=== PATIENT | female | born 1985 | race African-American/Black ===

== ENCOUNTER 2016-06-04 00:23 | Emergency (ER) | payer OTHER ==
[~2016-06-04] VITALS: Ht 152.4 cm; Wt 111.1 kg
[~2016-06-04 00:23] MED LIST: IBUPROFEN800 MG PO
--- NOTE | 2016-06-04 00:38 | ED MVC/FALL/TRAUMA COMPLAINT ---
History of Present Illness General Chief Complaint: Fall Stated Complaint: LKNEE AND LBP Source: patient Exam Limitations: no limitations Vital Signs & Intake/Output Vital Signs & Intake/Output ED Intake and Output 06/05 0000 06/04 1200 Intake Total 0 Output Total Balance 0 Intake, Oral 0 Patient 245 lb Weight Allergies Coded Allergies: NO KNOWN ALLERGIES (07/09/13) Reconcile Medications Ibuprofen 800 MG TABLET 800 MG PO Q6P PRN PAIN SCALE 4-6 Triage Note: 31YO FEMALE TO RM 2 VIA AMB FROM WORK SP FALL STATES SHE "FELL ON WET FLOOR WHILE LEAVING WORK. CO R KNEE AND LOW BACK PAIN. Triage Nurses Notes Reviewed? yes Onset: Just prior to arrival Duration: hour(s): (1) Timing: no prior history Severity: moderate Severity Numbers: 6 Injuries/Fall Location: back, lower extremity Method of Injury: fall Loss of Consciousness: no loss of consciousness Modifying Factors: Worsens With: movement. : No Patient currently breastfeeds: No HPI: Patient is a 31-year-old female presenting to the emergency department with chief complaint of left knee and low back pain after slipping and falling on a wet floor at his prior to arrival at work. She reports that she was leaving work accidentally slipped on wet floor and fell directly onto her left knee and then hit her back on the nurse's station. Denies head injury or loss of consciousness. No neck pain. Denies numbness or tingling. Denies radiation of the pain. It is achy throbbing worse with any range of motion or palpation. Denies taking anything for pain prior to arrival. Denies history of pain in these locations. Denies any nausea vomiting fevers or chills chest pain or shortness of breath. Denies any urinary incontinence or retention. No saddle paresthesias. (AURORA LEON) Past History Travel History Traveled to [place] past 21 day No Medical History Any Pertinent Medical History? see below for history Surgical History Surgical History: N Psychosocial History What is your primary language Citizen Of [place] Tobacco Use: Refused to answer Family History Hx Contributory? No (AURORA LEON) Review of Systems Review of Systems Constitutional: Reports: no symptoms. Comments Review of systems: See HPI, All other systems negative. Constitutional, no chills fever or weight loss HEENT: No visual changes no sore throat no congestion Cardiovascular: No chest pain ,palpitation Skin, no jaundice no rashes Respiratory: No dyspnea cough sputum or hemoptysis GI: No nausea no vomiting : No dysuria No hematuria Muscle skeletal: no neck pain, Neurologic: No numbness no confusion, no headaches Psych: No stress anxiety Immunology: No splenectomy or history of AIDS (AURORA LEON) Physical Exam Physical Exam General Appearance: well developed/nourished, no apparent distress, alert, awake , comfortable Comments: Well-developed well-nourished person in no acute distress HEENT: Pupils equally round and reactive to light and accommodation. Nose is atraumatic. Neck: Supple, no lymphadenopathy, normal range of motion without pain or tenderness, no C-spine tenderness. Back: Tender to palpation over the paraspinal muscles of the lumbar spine as well as L4, L5. No ecchymosis or palpable deformities. Full range of motion somewhat limited secondary to pain. Negative modified straight leg raise bilaterally. Cardiovascular: Regular rate and rhythms no murmurs rubs or gallops, normal JVP Respiratory: Chest nontender. No respiratory distress.breath sounds clear to auscultation bilaterally Extremity: No edema, no calf tenderness to palpation, normal and equal pulses. Tenderness palpation over the left patella, limited range of motion of the left knee secondary to pain. Negative ballottement test. No signs of erythema edema. No warmth to palpation over the left knee. Full range of motion of left foot, left ankle. Neuro: Alert oriented x3, motor sensory normal patellar reflexes are 2+ bilaterally. Skin: No appreciable rash on exposed skin, skin is warm and dry. Psych: Mood and affect is normal, memory and judgment is normal. (AURORA LEON) Core Measures ACS in differential dx? No Severe Sepsis Present: No Septic Shock Present: No (ZUNILDA GARZON,CADEN) Progress Differential Diagnosis: KNEE CONTUSION, FRACTURE, DISLOCATION, HERNIATED DISC, MUSCLE STRAIN, CAUDA EQUINA Plan of Care: Orders Procedure Date/time Status XRY-LUMBOSACRAL SPINE 4 VIEWS 06/04 36 Active XRY-KNEE COMPLETE LEFT 06/04 36 Active Current Medications Sig/Tati Start time Last Medication Dose Stop Time Status Admin Acetaminophen 650 MG ONCE ONE 06/04 44 UNVr (Tylenol) 06/04 45 Diagnostic Imaging: Viewed by Me: Radiology Read. Discussed w/RAD: Radiology Read. Hand-Off Endorsed To: CADEN MAURO MD Endorsed Time: 44 Pending: Xray Comments: 06/04/2016 12:44:59 AM patient medicated with by mouth Tylenol on arrival. Patient will go back to [facility]. This is worker's comp. (AURORA LEON) Radiology Impression: no acute abnormality, no fracture, no dislocation (CADEN MAURO MD) Departure Departure Disposition: HOME OR SELF CARE Condition: Stable Clinical Impression Primary Impression: Knee contusion Qualifiers: Encounter type: initial encounter Laterality: left Qualified Code: S80.02XA - Contusion of left knee, initial encounter Secondary Impressions: Back pain Qualifiers: Back pain location: low back pain Chronicity: acute Back pain laterality: bilateral Sciatica presence: without sciatica Qualified Code: M54.5 - Low back pain Referrals: BLU BRITT MD (PCP/Family) Additional Instructions: Follow-up with your primary care physician call to make an appointment. Rest ice and elevate affected extremities. Take Tylenol [id number] for any pain. (AURORA LEON) Departure Time of Disposition: 134 Departure Forms: Customer Survey General Discharge Information PA/KITCHEN OPERATOR Co-Sign Statement Statement: ED Attending supervision documentation- x I saw and evaluated the patient. I have also reviewed all the pertinent lab results and diagnostic results. I agree with the findings and the plan of care as documented in the PA's/KITCHEN OPERATOR's documentation. [] I have reviewed the ED Record and agree with the PA's/KITCHEN OPERATOR's documentation. [] Additions or exceptions (if any) to the PAs/KITCHEN OPERATOR's note and plan are summarized below: [] (CADEN MAURO MD)
[2016-06-04 00:44] VITALS: BP 142/98
--- NOTE | 2016-06-04 01:32 | RADIOLOGY REPORT ---
EXAMINATION: XR KNEE, LEFT CLINICAL INFORMATION: Pain status post fall COMPARISON: None TECHNIQUE: Four views of the left knee. FINDINGS: No acute fracture or subluxation. Compartmental joint spaces are maintained. No joint effusion. The soft tissues are unremarkable. IMPRESSION: No fracture or malalignment.
--- NOTE | 2016-06-04 01:33 | RADIOLOGY REPORT ---
EXAMINATION: XR LUMBOSACRAL SPINE CLINICAL INFORMATION: Pain status post fall COMPARISON: None TECHNIQUE: 4 views, 5 images of the lumbosacral spine FINDINGS: No acute fracture or subluxation. Vertebral bodies and posterior elements are anatomically aligned. Vertebral body heights and intervertebral disc spaces are maintained. The sacroiliac joints are intact. The sacrum is intact. The bowel gas pattern is unremarkable. IMPRESSION: No fracture or malalignment.
== END 2016-06-04 01:51 ==
LOC: ERH 00:23
DX: S80.02XA Contusion of left knee, initial encounter (principal); M54.5 Low back pain; W01.0XXA Fall on same level from slipping, tripping and stumbling without subsequent striking against object, initial encounter
CPT/HCPCS: 72110; 73562-LT

== ENCOUNTER → 2017-09-15 | Day surgery (SDC) | payer OTHER ==
[~2017-09-15] VITALS: Ht 152.4 cm; Wt 108.9 kg
[2017-09-15 11:23] LABS: ABSOLUTE BASOPHIL COUNT 0 /CUMM (0.0-0.2); ABSOLUTE EOSINOPHIL COUNT 0.1 /CUMM (0.0-0.7); ABSOLUTE GRANULOCYTE CT 2.7 /CUMM (1.4-6.5); ABSOLUTE LYMPH COUNT 1.5 /CUMM (1.2-3.4); ABSOLUTE MONOCYTE COUNT 0.3 /CUMM (0.10-0.60); BASOPHIL % 0.5 % (0.0-2.0); EOSINOPHIL % 1.8 % (0-5); GRANULOCYTE % 59.1 % (42.2-75.2); HEMATOCRIT 39.7 % (37-47); MEAN CORPUSCULAR HGB 28.7 PG (27.0-31.0); MEAN CORPUSCULAR HGB CONC 33.6 G/DL (33.0-37.0); MEAN CORPUSCULAR VOLUME 85.4 FL (81.0-99.0); MEAN PLATELET VOLUME 8.6 FL (7.4-10.4); PLATELET COUNT 405 /CUMM (130-400); RBC DISTRIBUTION WIDTH 13.9 % (11.5-14.5); RED BLOOD CELL CT 4.65 /CUMM (4.20-5.40); WHITE BLOOD CELL COUNT 4.5 /CUMM (4.8-10.8)
[2017-09-15 11:25] LABS: PT 12.1 SEC (9.4-12.5); PTT 34 SEC (25-37)
--- NOTE | 2017-09-20 19:51 | Operative Report ---
Operative/Inv Procedure Report Surgery Date: 09/15/17 Name of Procedure: Removal of On from left arm Pre-Operative Diagnosis: Multiparity Post-Operative Diagnosis: Same Estimated Blood Loss: scant Surgeon/Arson And Bomb Investigator: Vianey Ward MD Anesthesia: moderate sedation, block Operative/Procedure Note Note: Patient was taken to the operating room after adequate anesthesia a timeout patient's left arm was prepped and draped in sterile fashion at this point the On had been documented prior to surgery with a purple: Marcaine was injected underneath that a stab incision was made in the skin at the external location of the Patient tolerated that well blunt dissection was used to guide the next twin on through the skin was grabbed with a snap and removed and sent to pathology at this point pressure was applied to the incision needle tip Bovie was used for hemostasis and the skin was reapproximated using Steri-Strips H tolerated that well maximum amount of prepped was removed from the skin I dressing was applied the patient was awakened from anesthesia and transported recovery room awake alert counts correct .
== END ==
LOC: STS 01:49
PROVIDERS: Specialist
DX: Z64.1 Problems related to multiparity (principal); I10 Essential (primary) hypertension
CPT/HCPCS: 36415; 81001; 81025